=== PATIENT | female | born 1965 | race Caucasian/White ===

== ENCOUNTER 2020-10-15 16:38 | Emergency (ER) | payer SELFPAY ==
[~2020-10-15] VITALS: Ht 170.2 cm; Wt 65.4 kg
--- NOTE | 2020-10-15 17:23 | PHYS DOC ---
Past History Past Medical History: Hypertension (CHRIS GILMAN DO) Smoking: Cigarettes Alcohol Use: None Drug Use: None (CHRIS GILMAN DO) Adult General Chief Complaint Chief Complaint: ABDOMINAL PAIN HPI HPI Patient is a 54-year-old female presenting for abdominal pain. Reports this has been present for past 1 month but acutely worsened in the past week. Nothing known makes better or worse. Pain is diffuse but does admit focal area of pain near bladder/suprapubic region. Timing of symptoms has been constant and worsening since onset. Patient reports past medical history significant for hypertension only, she has no insurance and sees local [facility]. She was seen and evaluated 2 days ago at [facility] and had unremarkable urinalysis for infection but did have blood in it, she was subsequently put on prophylactic antibiotics, Keflex, for this which she has taken as prescribed daily without significant relief in symptoms. She denies any fever but admits x1 episode of nonbloody nonbilious emesis secondary to the pain. She has history of total hysterectomy involving removal of bilateral ovaries and uterus, no other abdominal surgeries. (CHRIS GILMAN DO) Review of Systems Review of Systems Fourteen body systems of review of systems have been reviewed. See HPI for pertinent positives and negative responses, other mijares all other systems are negative, non-pertinent or non-contributory (CHRIS GILMAN DO) Review of Systems Abdomen pain (HOMER MANE MD) Allergies Allergies Allergies Coded Allergies Type Severity Reaction Last Updated Verified No Known Drug Allergies 10/15/20 No (CHRIS GILMAN DO) Physical Exam Physical Exam Constitutional: Well developed, well nourished, moderate distress, non-toxic appearance. HENT: Normocephalic, atraumatic, bilateral external ears normal, oropharynx moist, no oral exudates, nose normal. Eyes: PERRLA, EOMI, conjunctiva normal, no discharge. Neck: Normal range of motion, no tenderness, supple, no stridor. Cardiovascular: Heart rate tachycardic, sinus rhythm, no murmurs rubs or gallops Lungs & Thorax: Bilateral breath sounds clear to auscultation Abdomen: Bowel sounds normal, soft, tenderness to palpation of periumbilical and suprapubic area, guarding present without rebound, no masses, no pulsatile masses. Skin: Warm, dry, no erythema, no rash. Back: No tenderness, no CVA tenderness. Extremities: No tenderness, no cyanosis, no clubbing, ROM intact, no edema. Neurologic: Alert and oriented X 3, grossly normal motor & sensory function, no focal deficits noted. Psychologic: Affect normal, judgement normal, anxious mood (KALINACHRIS ) Current Patient Data Vital Signs Vital Signs Date Time Temp Pulse Resp B/P (MAP) Pulse Ox O2 Delivery O2 Flow Rate FiO2 10/15/20 21:25 101 21 120/83 (95) 94 Room Air 10/15/20 16:38 98.2 Lab Results Laboratory Tests Test 10/15/20 17:10 10/15/20 17:18 10/15/20 20:05 10/15/20 21:35 White Blood Count 7.3 x10^3/uL (4.0-11.0) Red Blood Count 5.47 x10^6/uL (3.50-5.40) Hemoglobin 18.5 g/dL (12.0-15.5) Hematocrit 54.9 % (36.0-47.0) Mean Corpuscular Volume 100 fL (79-100) Mean Corpuscular Hemoglobin 34 pg (25-35) Mean Corpuscular Hemoglobin Concent 34 g/dL (31-37) Red Cell Distribution Width 12.6 % (11.5-14.5) Platelet Count 185 x10^3/uL (140-400) Neutrophils (%) (Auto) 89 % (31-73) Lymphocytes (%) (Auto) 5 % (24-48) Monocytes (%) (Auto) 5 % (0-9) Eosinophils (%) (Auto) 0 % (0-3) Basophils (%) (Auto) 0 % (0-3) Neutrophils # (Auto) 6.5 x10^3uL (1.8-7.7) Lymphocytes # (Auto) 0.4 x10^3/uL (1.0-4.8) Monocytes # (Auto) 0.4 x10^3/uL (0.0-1.1) Eosinophils # (Auto) 0.0 x10^3/uL (0.0-0.7) Basophils # (Auto) 0.0 x10^3/uL (0.0-0.2) Troponin I Quantitative < 0.017 ng/mL (0-0.055) Sodium Level 131 mmol/L (136-145) Potassium Level 4.1 mmol/L (3.5-5.1) Chloride Level 93 mmol/L (98-107) Carbon Dioxide Level 28 mmol/L (21-32) Anion Gap 10 (6-14) Blood Urea Nitrogen 7 mg/dL (7-20) Creatinine 1.1 mg/dL (0.6-1.0) Estimated GFR (Cockcroft-Gault) 51.4 Glucose Level 122 mg/dL (70-99) Calcium Level 8.7 mg/dL (8.5-10.1) Urine Collection Type Unknown Urine Color Caryl Urine Clarity Cloudy Urine pH 5.5 Urine Specific [place] 1.010 Urine Protein Neg (NEG-TRACE) Urine Glucose (UA) Neg mg/dL (NEG) Urine Ketones (Stick) Neg mg/dL (NEG) Urine Blood Trace (NEG) Urine Nitrite Neg (NEG) Urine Bilirubin Neg (NEG) Urine Urobilinogen Dipstick 0.2 mg/dL (0.2 mg/dL) Urine Leukocyte Esterase Trace (NEG) Urine RBC 20-40 /HPF (0-2) Urine WBC 5-10 /HPF (0-4) Urine Squamous Epithelial Cells Many /LPF Urine Bacteria 0 /HPF (0-FEW) Lactic Acid Level 1.2 mmol/L (0.4-2.0) (CHRIS GILMAN DO) EKG EKG EKG ordered and interpreted by myself at 1728 hrs. as sinus rhythm at 102 bpm, unremarkable intervals, no axis deviation, no acute ischemic findings, no STEMI (CHRIS GILMAN DO) Radiology/Procedures Radiology/Procedures [address] [address] IMAGING REPORT Signed PATIENT: DILEEP CARBAJAL ACCOUNT: [id number] : 1965 LOCATION: ER AGE: 54 SEX: F EXAM STATUS: REG ER ORD. PHYSICIAN: CHRIS GILMAN DO REASON: AP PROCEDURE: CHEST AP ONLY Exam: Chest one view INDICATION: Chest pain TECHNIQUE: Frontal view of the chest Comparisons: None FINDINGS: The cardiomediastinal silhouette and pulmonary vessels are within normal limits. Strandy opacities at lung bases bilaterally. No pleural effusion. IMPRESSION: Bibasilar atelectasis. Electronically signed by: Jayleen Cruz MD (10/15/2020 6:21 PM) [facility] DICTATED AND SIGNED BY: JAYLEEN CRUZ MD DATE: 10/15/201820 CC: CHRIS GILMAN DO; NON,STAFF ~MTH0 [address] [place] [id number] IMAGING REPORT Signed PATIENT: DILEEP CARBAJAL ACCOUNT: [id number] : 1965 LOCATION: ER AGE: 54 SEX: F EXAM STATUS: REG ER ORD. PHYSICIAN: CHRIS GILMAN DO REASON: suprapubic pain, hematuria PROCEDURE: CT ABDOMEN PELVIS WO CONTRAST Abdominal and Pelvis CT, Without Contrast: History: Reason: suprapubic pain, hematuria / Spl. Instructions: / History: Comparison: None. Procedure: Axial images are obtained of the abdomen and pelvis, without IV or oral contrast. Oral Contrast: No Findings: Evaluation of solid organs is limited without contrast. The colon is collapsed limiting evaluation. There is no pericolonic inflammation. There is multiple foci of free air in the abdomen. There is moderate sigmoid diverticulosis and there is a 1 5 x 2.6 cm collection of air medial to the mid cecum. There is moderate wall thickening of a 12 cm length of the proximal to mid sigmoid colon. There are small fat-containing inguinal canal hernias bilaterally. The appendix is not well seen but appears normal. Trace of free fluid in the pelvis is a trace of free fluid along the paracolic gutter on the right. The gallbladder appears normal. Liver: Normal. Spleen: Normal. Pancreas: Normal. Adrenal Glands: There is 1.8 cm mass in the left adrenal. Kidneys: There is a 5 mm nonobstructive stone in the right renal pelvis. There is no lymphadenopathy. The urinary bladder appears normal. Impression: 1. 12 cm length of moderate wall thickening of the proximal through mid sigmoid colon. This is nonspecific and could be adenocarcinoma or could be inflammatory or infectious colitis. There is no air in the wall suggesting ischemic colitis. There is no evidence of diverticulitis. 2. There is mild free air which is consistent with a ruptured hollow viscus and could be due to a perforated sigmoid diverticula. There is a 5.5 x 2.6 cm air-fluid collection medial sigmoid colon consistent with an abscess. End impression PQRS Compliance Statement: One or more of the following individualized dose reduction techniques were utilized for this examination: 1. Automated exposure control 2. Adjustment of the mA and/or kV according to patient size 3. Use of iterative reconstruction technique Electronically signed by: Anuja Alcantara III, MD (10/15/2020 6:24 PM) [facility] DICTATED AND SIGNED BY: ANUJA ALCANTARA III, MD DATE: 10/15/201823 CC: CHRIS GILMAN DO; NON,STAFF ~MTH0 0 (HOMER MANE MD) Heart Score HEART Score for Chest Pain: HEART Score for Chest Pain Response (Comments) Value History Slighlty/Non-Suspicious 0 ECG Normal 0 Age >45 - < 65 1 Risk Factors 1 or 2 Risk Factors 1 Troponin < Normal Limit 0 Total 2 Risk Factors: Risk Factors: DM, Current or recent (<one month) smoker, HTN, HLP, family history of CAD, obesity. Risk Scores: Risk Factors: DM, Current or recent (<one month) smoker, HTN, HLP, family history of CAD, obesity. (CHRIS GILMAN DO) Course & Med Decision Making Course & Med Decision Making Initial history and physical examination ordered, still pending diagnostic work- up to result prior to the end of my shift. Comprehensive signout given to Dr. Mane. Please review his further notes regarding care of patient (CHRIS GILMAN DO) Course & Med Decision Making Still no electrolytes- re-order. Disucssed presentation, testing and tx. plan with Dr. De La Rosa and Dr. Meehan- in surgery currently. Plan transfer to [facility]. Admit to Rj. See Dr. Gilman chart for earlier eval. Impression: 1. Abdomen Pain 2. Dehydration 3. Colitis- with Free Air= Perforation (HOMER MANE MD) Dragon Disclaimer Dragon Disclaimer This electronic medical record was generated, in whole or in part, using a voice recognition dictation system. (CHRIS GILMAN DO) Departure Departure: Impression: Primary Impression: Colitis Additional Impression: Perforated sigmoid colon Disposition: 02 DC/TRF OTHER SHORT TERM HOS ([facility]) Admitting Physician: Romulo De La Rosa (CHRIS GILMAN DO) Condition: STABLE Referrals: NON,STAFF (PCP) Dragnina Disclaimer This chart was dictated in whole or in part using Voice Recognition software in a busy, high-work load, and often noisy Emergency Department environment. It may contain unintended and wholly unrecognized errors or omissions. (HOMER MANE MD) Dragon Disclaimer This chart was dictated in whole or in part using Voice Recognition software in a busy, high-work load, and often noisy Emergency Department environment. It may contain unintended and wholly unrecognized errors or omissions. (CHRIS GILMAN DO) Problem Qualifiers CHRIS GILMAN DO Oct 15, 2020 17:23 HOMER MANE MD Oct 15, 2020 20:30
[2020-10-15] MEDS ORDERED: MORPHINE SULFATE 4 MG/ML DISP.SYRIN. IV ONE (17:30)
[2020-10-15] MEDS ORDERED: IV NORMAL SALINE 1,000ML 1,000 ML IV ONE (17:30)
[2020-10-15] MEDS ORDERED: ONDANSETRON PF 4 MG/2 ML VIAL. ONE (17:31)
[2020-10-15 17:32] LABS: BASO % 0 % (0-3); EOS % 0 % (0-3); HEMATOCRIT 54.9 % (36.0-47.0); HEMOGLOBIN 18.5 g/dL (12.0-15.5); LYMPH # 0.4 x10^3/uL (1.0-4.8); LYMPH % 5 % (24-48); MEAN CORPUSCULAR HEMOGLOBIN 34 pg (25-35); MEAN CORPUSCULAR HGB CONC 34 g/dL (31-37); MEAN CORPUSCULAR VOLUME 100 fL (79-100); MONO # 0.4 x10^3/uL (0.0-1.1); MONO % 5 % (0-9); NEUT # 6.5 x10^3uL (1.8-7.7); NEUT % 89 % (31-73); PLATELET COUNT 185 x10^3/uL (140-400); RED BLOOD COUNT 5.47 x10^6/uL (3.50-5.40); RED CELL DISTRIBUTION WIDTH 12.6 % (11.5-14.5); WHITE BLOOD COUNT 7.3 x10^3/uL (4.0-11.0)
[2020-10-15] MEDS ORDERED: ONDANSETRON PF 4 MG/2 ML VIAL. IVP ONE (17:45)
--- NOTE | 2020-10-15 18:24 | RAD ---
Exam: Chest one view INDICATION: Chest pain TECHNIQUE: Frontal view of the chest Comparisons: None FINDINGS: The cardiomediastinal silhouette and pulmonary vessels are within normal limits. Strandy opacities at lung bases bilaterally. No pleural effusion. IMPRESSION: Bibasilar atelectasis. Electronically signed by: Jayleen Acosta MD (10/15/2020 6:21 PM) [facility]
--- NOTE | 2020-10-15 18:26 | RAD ---
Abdominal and Pelvis CT, Without Contrast: History: Reason: suprapubic pain, hematuria / Spl. Instructions: / History: Comparison: None. Procedure: Axial images are obtained of the abdomen and pelvis, without IV or oral contrast. Oral Contrast: No Findings: Evaluation of solid organs is limited without contrast. The colon is collapsed limiting evaluation. There is no pericolonic inflammation. There is multiple foci of free air in the abdomen. There is moderate sigmoid diverticulosis and there is a 1 5 x 2.6 cm collection of air medial to the mid cecum. There is moderate wall thickening of a 12 cm length of the proximal to mid sigmoid colon. There are small fat-containing inguinal canal hernias bilaterally. The appendix is not well seen but appears normal. Trace of free fluid in the pelvis is a trace of free fluid along the paracolic gutter on the right. The gallbladder appears normal. Liver: Normal. Spleen: Normal. Pancreas: Normal. Adrenal Glands: There is 1.8 cm mass in the left adrenal. Kidneys: There is a 5 mm nonobstructive stone in the right renal pelvis. There is no lymphadenopathy. The urinary bladder appears normal. Impression: 1. 12 cm length of moderate wall thickening of the proximal through mid sigmoid colon. This is nonspecific and could be adenocarcinoma or could be inflammatory or infectious colitis. There is no air in the wall suggesting ischemic colitis. There is no evidence of diverticulitis. 2. There is mild free air which is consistent with a ruptured hollow viscus and could be due to a perforated sigmoid diverticula. There is a 5.5 x 2.6 cm air-fluid collection medial sigmoid colon consistent with an abscess. End impression PQRS Compliance Statement: One or more of the following individualized dose reduction techniques were utilized for this examination: 1. Automated exposure control 2. Adjustment of the mA and/or kV according to patient size 3. Use of iterative reconstruction technique Electronically signed by: Gulshan Lee III, MD (10/15/2020 6:24 PM) [facility]
[2020-10-15] MEDS ORDERED: cefTRIAXone SODIUM 1 GM VIAL ONE (20:47)
[2020-10-15] MEDS ORDERED: IV NORMAL SALINE 50ML 50 ML ONE (20:47)
[2020-10-15] MEDS ORDERED: MORPHINE SULFATE 10 MG/ML SYRINGE. SQ ONE (21:00)
[2020-10-15 21:01] LABS: COLOR,URINE AMBER
[2020-10-15 21:02] LABS: CALCIUM 8.7 mg/dL (8.5-10.1); CREATININE 1.1 mg/dL (0.6-1.0); GFR 51.4; POTASSIUM 4.1 mmol/L (3.5-5.1)
[2020-10-15 21:02] LABS: BACTERIA,URINE 0 /HPF (0-FEW); BILIRUBIN,URINE NEG (NEG); CLARITY,URINE CLOUDY; GLUCOSE,URINE NEG (NEG); NITRITE,URINE NEG (NEG); RBC,URINE 20-40 /HPF (0-2); SQUAMOUS EPITHELIAL CELL,UR MANY /LPF; UROBILINOGEN,URINE 0.2 mg/dL (0.2 mg/dL)
[2020-10-15 21:25] VITALS: BP 120/83
[2020-10-15] MEDS ORDERED: SODIUM BICARB ADULT 8.4% 50 MEQ/50 ML DISP.SYRIN. IV ONE (21:30)
[2020-10-15] MEDS ORDERED: IV RINGERS SOLUTION,LACTATED 1,000 ML IV ONE (21:30)
--- NOTE | 2020-10-17 09:06 | EKG ---
[address] [address] Test Date: 2020-10-15 Test Time: 17:26:25 Pat Name: DILEEP CARBAJAL Department: Room: Gender: F Programmer Analyst: BENOIT : 1965 Requested By: CHRIS GILMAN Order Number: [id number] Reading MD: Measurements Intervals Patrick Rate: 102 P: 90 WI: 198 QRS: 84 QRSD: 84 T: 78 QT: 330 QTc: 434 Interpretive Statements SINUS TACHYCARDIA OTHERWISE NORMAL ECG RI6.02 No previous ECG available for comparison
== END 2020-10-15 22:28 | disposition short-term general hospital (02) ==
LOC: ER 16:38
DX: K52.9 Noninfective gastroenteritis and colitis, unspecified (principal); K63.1 Perforation of intestine (nontraumatic); E86.0 Dehydration; I10 Essential (primary) hypertension; F17.210 Nicotine dependence, cigarettes, uncomplicated; Z90.710 Acquired absence of both cervix and uterus
CPT/HCPCS: 36415; 71045; 74176; 80048; 81001; 83605; 84484; 85025; 87086; 93005; 96361; 96365; 96368; 96372; 96375; 99285; J0696; J2270; J2405; J3490; J7030; J7120